=== PATIENT | male | born 1950 | race Caucasian/White ===

== ENCOUNTER 2020-01-29 12:30 | Outpatient (NON) | payer MEDICARE, SELFPAY ==
[2020-01-29 23:24] LABS: SARS-CoV-2 RNA PCR Negative
== END 2020-01-29 12:31 ==
PROVIDERS: PCP Family Medicine; Visit Provider Family Medicine
DX: Z20.828 Contact with and (suspected) exposure to other viral communicable diseases (principal); R09.89 Other specified symptoms and signs involving the circulatory and respiratory systems
CPT/HCPCS: 87635; C9803; U0003

== ENCOUNTER 2020-09-30 00:34 | Day surgery (SDC) | payer MEDICARE, SELFPAY ==
[2020-09-17 13:26] VITALS: BMI 26.4
[2020-09-30 09:31] VITALS: BP 144/71; PULSE 66; RESP 16; TEMP 35.4; O2SAT 100; BMI 25.9
[2020-09-30] MEDS: LACTATED RINGERS 1,000 ML 150 ML IV CONT (09:36)
[2020-09-30 09:56] LABS: Glucose Point of Care 121 mg/dl (65-105)
--- NOTE | 2020-09-30 09:58 | WPDANESEPPF ---
Anes - Initial Pre Proc Eval Procedure: Operation Date: 09/30/20 10:30 Proposed Procedures p Screening Colonoscopy - Ramses Swift MD Date/Time: 09/30/20 09:58 Surgeon: Ramses Swift MD Pre Op Diagnosis: hx of colon polyps Patient Data Age: 69 Gender: M Height: 1.83 m Weight: 86.8 kg Last Vital Signs Temp 35.4 C L 09/30/20 09:31 Pulse 66 09/30/20 09:31 Resp 16 09/30/20 09:31 BP 144/71 H 09/30/20 09:31 Pulse Ox 100 09/30/20 09:31 Allergies Allergy/AdvReac Type Severity Reaction Status Date / Time No Known Allergies Allergy Verified 09/30/20 09:28 Home Medications Medication Instructions Recorded Confirmed Type multivitamin 1 tablet PO DAILY 03/19/19 09/30/20 History atorvastatin 20 mg tablet 20 mg PO DAILY #90 tablet 09/08/19 09/30/20 Rx levothyroxine 75 mcg capsule 75 mcg PO DAILY #90 cap 09/08/19 09/30/20 Rx metformin 1,000 mg tablet 1,000 mg PO BID #180 tablet 09/08/19 09/30/20 Rx blood sugar diagnostic See Rx Instructions .ROUTE 06/14/20 Rx .COMPLEX #100 strip Laboratory Tests 09/30/20 09:53 POC Capillary Glucose 121 mg/dl H mg/dl (65-105) Patient hx anesthesia problems: none Family hx anesthesia problems: none PMFSH Surgical History Surgical History History of appendectomy History of colonoscopy (~12/18/07) Family History Family History Mother Diabetes mellitus Sibling Diabetes mellitus Family history of malignant neoplasm of bone Father Patient's father is Social History Social History Alcohol intake: current Substance use type: does not use Living arrangements: with family Gender identity (if verbalized by the patient): Male Anes - Eval Final PreProcedure Day of Procedure 09/30/20 09:58 Patient weight: overweight Heart: regular rate and rhythm Lungs: clear to auscultation Airway: Mallampati scale class II Neurological: alert and oriented Last oral intake: >/= 8 hours ASA classification: III Emergent: no Anesthetic plan: proceed Anesthesia type and monitoring: general GIVS and standard monitoring Informed Consent: The patient's anesthetic plan and its attendant risks and benefits were discussed with the patient/family/POA. Questions were solicited and answers provided to the satisfaction of the patient/family/POA.
--- NOTE | 2020-09-30 10:10 | PM.HPGS ---
History of Present Illness History of Present Illness Consent: Risks, benefits, and alternatives have been discussed and questions answered. Patient agrees to proceed with procedure. Chief complaint: hx of colon polyps Narrative: Ramesh Navarrete is a 69 year old male Who is here today for colon cancer screening. He has a history of polyps. Review of Systems Review of Systems: All systems reviewed & are unremarkable except as noted in HPI and below PMFSH Surgical History Surgical History History of appendectomy History of colonoscopy (~12/18/07) Family History Family History Mother Diabetes mellitus Sibling Diabetes mellitus Family history of malignant neoplasm of bone Father Patient's father is Social History Social History Alcohol intake: current Substance use type: does not use Living arrangements: with family Gender identity (if verbalized by the patient): Male Meds Home Medications and Allergies Home Medications Medication Instructions Recorded Confirmed Type multivitamin 1 tablet PO DAILY 03/19/19 09/30/20 History atorvastatin 20 mg tablet 20 mg PO DAILY #90 tablet 09/08/19 09/30/20 Rx levothyroxine 75 mcg capsule 75 mcg PO DAILY #90 cap 09/08/19 09/30/20 Rx metformin 1,000 mg tablet 1,000 mg PO BID #180 tablet 09/08/19 09/30/20 Rx blood sugar diagnostic See Rx Instructions .ROUTE 06/14/20 Rx .COMPLEX #100 strip Allergies Allergy/AdvReac Type Severity Reaction Status Date / Time No Known Allergies Allergy Verified 09/30/20 09:28 Vital Signs Vital Signs - 24 hr 09/30/20 09:31 Temperature 35.4 C L Pulse Rate 66 Respiratory Rate 16 Blood Pressure 144/71 H Pulse Oximetry 100 Exam Resp: Auscultation: clear to auscultation bilaterally Cardio: Rate: regular rate Rhythm: regular rhythm GI: GI Palp: Yes Soft to palpation and No Tenderness to palpation present (GI) Assessment and Plan Assessment and plan (1) Colon cancer screening: Code(s): Z12.11 - Encounter for screening for malignant neoplasm of colon Status: Acute Assessment and Plan: Colonoscopy with possible biopsy or polypectomy or cautery or injection of substances.
[2020-09-30] MEDS: SIMETHICONE ORAL SUSPENSION 20 MG/0.3 ML 30 ML BOTTLE 0.6 ML IRRIGATION (10:54)
[2020-09-30 11:06] VITALS: BP 123/62; PULSE 61; RESP 21; O2SAT 100
[2020-09-30 11:16] VITALS: BP 111/65; PULSE 64; RESP 20; O2SAT 100
[2020-09-30 11:26] VITALS: BP 127/73; PULSE 63; RESP 18; O2SAT 100
== END 2020-09-30 11:38 | disposition home or self-care (01) ==
PROVIDERS: PCP Family Medicine; Visit Provider Internal Medicine Gastroenterology
PROC: 0DJD8ZZ Inspection of Lower Intestinal Tract, Via Natural or Artificial Opening Endoscopic (ICD-10-PCS; CPT 45378; principal; 2020-09-30 10:30)
DX: Z12.11 Encounter for screening for malignant neoplasm of colon (principal); D12.5 Benign neoplasm of sigmoid colon; Z79.84 Long term (current) use of oral hypoglycemic drugs
CPT/HCPCS: 45385; 82948; 88305; J2704; J7120

== ENCOUNTER → 2021-02-22 08:45 | Outpatient (CLI) | payer MEDICARE, SELFPAY ==
[2021-02-23 03:59] LABS: SARS-CoV-2 RNA PCR Negative
== END ==
PROVIDERS: PCP Family Medicine; Visit Provider Physician Assistant
DX: R68.83 Chills (without fever) (principal); R53.83 Other fatigue; Z20.822 Contact with and (suspected) exposure to COVID-19
CPT/HCPCS: C9803; U0003; U0005

== ENCOUNTER 2022-07-12 14:45 | Outpatient (CLI) | payer MEDICARE, SELFPAY ==
[2022-07-12 20:52] LABS: Alanine Aminotransferase 24 U/L (6-50); Albumin Level 4.2 g/dL (3.5-5.1); Alkaline Phosphatase 92 U/L (38-126); Anion Gap 5 mmol/L (8-16); Aspartate Amino Transferase 33 U/L (17-59); Bilirubin,Total 0.8 mg/dL (0.2-1.3); Blood Urea Nitrogen 18 mg/dL (9-20); Calcium 8.9 mg/dL (8.4-10.2); Carbon Dioxide 32 mmol/L (22-30); Chloride 100 mmol/L (98-107); Estimated Glomerular Filt Rate > 60; Glucose 214 mg/dL (65-110); Potassium 3.9 mmol/L (3.4-5.0); Sodium 137 mmol/L (137-145)
[2022-07-12 21:28] LABS: Hemoglobin A1C 8.2 % (<5.7)
== END 2022-07-12 14:46 | disposition home or self-care (01) ==
LOC: ANHGOSHLAB 14:46
PROVIDERS: PCP Family Medicine; Visit Provider Family Medicine
DX: E78.2 Mixed hyperlipidemia (principal); E11.9 Type 2 diabetes mellitus without complications; E03.9 Hypothyroidism, unspecified
CPT/HCPCS: 36415; 80053; 83036; 84443

== ENCOUNTER → 2022-08-17 13:42 | Outpatient (CLI) | payer MEDICARE, SELFPAY ==
--- NOTE | ~2022-08-17 | XR_ITS ---
XR knee LT min 4V 08/17/2022 14:11 Indication: Left knee pain Procedure: 4 views left knee Comparison: No prior studies for comparison. Findings: Mild tricompartment osteoarthritis. There is chondrocalcinosis. No fracture, subluxation or dislocation. No significant joint effusion. 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 Reviewed, dictated and finalized at location L. 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
== END ==
PROVIDERS: PCP Family Medicine; Visit Provider Family Medicine
DX: G89.29 Other chronic pain (principal); M25.562 Pain in left knee; M17.12 Unilateral primary osteoarthritis, left knee
CPT/HCPCS: 73564

== ENCOUNTER 2023-01-17 08:13 | Outpatient (CLI) | payer MEDICARE, SELFPAY ==
[2023-01-17 12:03] LABS: Basophils Absolute Auto 0.1 K/mm3 (0.0-0.1); Basophils Percent Auto 0.9 % (0.2-1.2); Eosinophils Absolute Auto 0.2 K/mm3 (0-0.3); Eosinophils Percent Auto 2.5 % (0-4.4); Hematocrit 39.2 % (42.0-52.0); Hemoglobin 12.5 g/dL (14.0-18.0); Immature Granulocyte Absolute 0.02 K/mm3 (0.00-0.031); Immature Granulocyte Percent A 0.3 % (0-0.5); Lymphocytes Absolute Auto 2.01 K/mm3 (0.9-3.2); Lymphocytes Percent Auto 31.8 % (18.3-44.2); Mean Corpuscular HGB Conc 31.9 g/dl (32-36); Mean Corpuscular Hemoglobin 32.6 pg (26-34); Mean Corpuscular Volume 102.1 fl (80-100); Mean Platelet Volume 11.6 fl (7.4-10.4); Monocytes Absolute Auto 0.8 K/mm3 (0.1-0.6); Monocytes Percent Auto 12.5 % (2.6-8.5); Neutrophils Absolute Auto 3.3 K/mm3 (1.3-6.7); Platelet Count Result 236 k/mm3 (150-375); Red Blood Count 3.84 M/mm3 (4.6-6.20); Red Cell Distribution Width 12.8 % (11.5-14.5); White Blood Count 6.3 K/mm3 (4.5-10.0)
[2023-01-17 12:17] LABS: Alanine Aminotransferase 24 U/L (6-50); Albumin Level 4.3 g/dL (3.5-5.1); Alkaline Phosphatase 89 U/L (38-126); Anion Gap 9 mmol/L (8-16); Aspartate Amino Transferase 35 U/L (17-59); Bilirubin,Total 0.9 mg/dL (0.2-1.3); Blood Urea Nitrogen 16 mg/dL (9-20); Calcium 9.4 mg/dL (8.4-10.2); Carbon Dioxide 28 mmol/L (22-30); Chloride 102 mmol/L (98-107); Cholesterol 130 mg/dL (0-200); Estimated Glomerular Filt Rate > 60; Glucose 150 mg/dL (65-110); HDL Direct 40 mg/dL; Potassium 4.3 mmol/L (3.4-5.0); Sodium 139 mmol/L (137-145); Triglycerides 64 mg/dL (<150)
[2023-01-17 12:31] LABS: Hemoglobin A1C 7.9 % (<5.7)
[2023-01-17 12:34] LABS: LDL Cholesterol Direct 72 mg/dL
[2023-01-17 12:40] LABS: Creatinine Urine 43.4 mg/dL
[2023-01-17 12:43] LABS: Microalbumin Urine Random 7.8 mg/L (0-16.7)
[2023-01-17 12:46] LABS: Prostate Specific Antigen 3.9 ng/mL (< OR = 4.0)
[2023-01-17 13:03] LABS: Vitamin D 25 Hydroxy 43.8 ng/mL
[2023-01-17 17:44] LABS: Free T4 Free Thyroxine Reflex 1.63 ng/dL (0.78-2.19)
[2023-01-17 19:27] LABS: Total Triiodothyronine (T3) 1.24 NG/ML (0.97-1.69)
== END 2023-01-17 08:14 | disposition home or self-care (01) ==
PROVIDERS: PCP Family Medicine; Visit Provider Family Medicine
DX: Z00.00 Encounter for general adult medical examination without abnormal findings (principal); E03.9 Hypothyroidism, unspecified; E55.9 Vitamin D deficiency, unspecified; Z12.5 Encounter for screening for malignant neoplasm of prostate; I10 Essential (primary) hypertension; E53.8 Deficiency of other specified B group vitamins; E11.9 Type 2 diabetes mellitus without complications; E78.5 Hyperlipidemia, unspecified
CPT/HCPCS: 36415; 80053; 80061; 82043; 82306; 82607; 83036; 84153; 84439; 84443; 84480; 85025; G0103

== ENCOUNTER → 2023-01-23 12:43 | Outpatient (CLI) | payer MEDICARE, SELFPAY ==
--- NOTE | ~2023-01-23 | XR_ITS ---
EXAM: XR lumbar spine min 4V DATE: 01/23/2023 13:00 HISTORY: no injury lbp going down right leg . COMPARISON: None available. FINDINGS: 5 nonrib-bearing lumbar-type vertebral bodies. Pedicles intact. Minimal 1-2 mm retrolisthe ses at L2-3, L3-4, and L4-5. Mild multilevel disc space narrowing. Moderate multilevel marginal osteo phytosis including bridging osteophytes. Multilevel mild facet arthropathy. Moderate facet arthropath y bilaterally at L5-S1 and on the left at L4-5. Mild lumbar scoliosis. No fracture or dislocation. Mi ld bilateral hip osteoarthritis. IMPRESSION: Multilevel minimal grade 1 retrolistheses, presumably on a degenerative basis. Multilevel moderate degenerative disc disease. Moderate bilateral facet arthropathy at L5-S1. Reviewed, dictated and finalized at location K. [employer] IMPRESSION: Multilevel minimal grade 1 retrolistheses, presumably on a degenera tive basis. Multilevel moderate degenerative disc disease. Moderate bilateral f acet arthropathy at L5-S1.
== END ==
PROVIDERS: PCP Family Medicine; Visit Provider Family Medicine
DX: M54.50 Low back pain, unspecified (principal); M51.36 Other intervertebral disc degeneration, lumbar region; M43.16 Spondylolisthesis, lumbar region
CPT/HCPCS: 72110

== ENCOUNTER 2023-02-27 14:30 | Outpatient (RCR) | payer MEDICARE, SELFPAY ==
--- NOTE | 2023-02-02 15:21 | OPREHPOC ---
Outpatient Therapy Plan of Care This is a Multidisciplinary Plan of Care that may contain components documented by all disciplines (PT, OT, and ST.) PT Problem 1 PT Problem #1 Knowledge Deficit PT Goal 1 Goal Pt to be IND with issued HEP Target Visit 4 PT Problem 2 PT Problem #2 Pain PT Goal 1 Goal Pt to report low back pain no greater than 3/10 in the last week. Target Visit 4 PT Goal 2 Goal Pt to report 75% improvement in overall symptoms, Target Visit 4 PT Problem 3 PT Problem #3 Impaired Range of Motion PT Goal 1 Goal Pt to report equal stretch sensation helio with active lumbar ROM. Target Visit 4
--- NOTE | 2023-02-02 15:22 | PTOPEVAL1 ---
Assessment and note entered by Donald Stallworth, PT, DPT Evaluation Information Assessment Status Evaluation Diagnosis low back pain Onset ~1 month Subjective Information Pt states a couple of weeks ago he was splitting wood and he states if feels like he pulled a muscle the next day. He states he gave it a couple of weeks and the pain has not gotten better yet. He states he was given a muscle relaxer yesterday and this already seems to be helping. He states the pain in an annoyance but his activity is not limited by it. He states transitioning to/from sit /stand is the most painful task. Reported Pain Level Pain Score 1: Self Report Assessment PT Clinical Summary Ramesh presents to therapy today for his initial evaluation with a diagnosis of low back pain. Today he demonstrates decreased lumbar motion in all directions, with good LE strength and ROM. He demonstrates minor paraspinal muscle guarding and has a mild asymmetric pelvic position in supine. Skilled therapy services are indicated to manage pain, improve lumbar mobility, and to return to PLOF. Plan of Care Interventions Electrical Stimulation,Gait Training,Hot Pack/Cold Pack,Manual Therapy,Neuro Re-education,Prosthetic Training,Therapeutic Activities PT Services Indicated Yes Treatment Frequency and 1x/wk for 4 visits Duration These treatments will address the objective and functional deficits as defined above. The patient will be advanced safely and appropriately in order for the patient to progress towards his/her prior level of function. Additional exercises will be introduced and as well as a comprehensive home exercise program upon discharge, if needed, ?to ensure carryover of functional gains achieved in the clinic. This treatment plan has been reviewed and agreement upon by the patient.
--- NOTE | 2023-02-22 08:33 | PCPTNOTE ---
Patient canceled appointment this date due to being out of town.
--- NOTE | 2023-02-27 15:04 | PTOPDC ---
Assessment and note entered by Donald Stallworth, PT, DPT Evaluation Information Assessment Status discharge Diagnosis low back pain Onset ~1 month Subjective Information Pt states his back is doing great, he states he has not had any pain since his first few treatment . He reports no back pain in the last week. He states he continues to have a mild ache in the back of his hip. Reported Pain Level Pain Score 0: Self Report Assessment PT Clinical Summary Ramesh presents to therapy today for his progress report following 4 visits of skilled therapy to treat his diagnosis of low back pain. Today he demonstrates improved lumbar ROM and hip ROM is all directions. He has met all of his therapy goals and no longer requires skilled services. He will be discharged at this time.
== END 2023-02-27 15:34 | disposition home or self-care (01) ==
LOC: ANHGOSHPT 14:30
PROVIDERS: PCP Family Medicine; Visit Provider Family Medicine
DX: M54.50 Low back pain, unspecified (principal)
CPT/HCPCS: 97014; 97110; 97161; 97530; G0283

== ENCOUNTER 2024-01-28 09:45 | Outpatient (CLI) | payer MEDICARE, SELFPAY ==
[2024-01-28 14:12] LABS: Basophils Absolute Auto 0.1 K/mm3 (0.0-0.1); Basophils Percent Auto 0.8 % (0.2-1.2); Eosinophils Absolute Auto 0.2 K/mm3 (0-0.3); Eosinophils Percent Auto 2.9 % (0-4.4); Hemoglobin 13.2 g/dL (14.0-18.0); Immature Granulocyte Absolute 0.02 K/mm3 (0.00-0.031); Immature Granulocyte Percent A 0.3 % (0-0.5); Lymphocytes Absolute Auto 1.67 K/mm3 (0.9-3.2); Lymphocytes Percent Auto 25.8 % (18.3-44.2); Mean Corpuscular HGB Conc 32.2 g/dl (32-36); Mean Corpuscular Hemoglobin 33.6 pg (26-34); Mean Corpuscular Volume 104.3 fl (80-100); Monocytes Absolute Auto 0.6 K/mm3 (0.1-0.6); Monocytes Percent Auto 9.6 % (2.6-8.5); Neutrophils Absolute Auto 3.9 K/mm3 (1.3-6.7); Neutrophils Percent Auto 60.6 % (45.5-73.1); Platelet Count Result 228 k/mm3 (150-375); Red Blood Count 3.93 M/mm3 (4.6-6.20); Red Cell Distribution Width 12.8 % (11.5-14.5); White Blood Count 6.5 K/mm3 (4.5-10.0)
[2024-01-28 14:18] LABS: Creatinine Urine 173.3 mg/dL
[2024-01-28 14:27] LABS: MALB Creatinine Ratio 27.1 mg/g (0-30); Microalbumin Urine Random 46.9 mg/L (0-16.7)
[2024-01-28 14:35] LABS: Hemoglobin A1C 8.2 % (<5.7)
[2024-01-28 15:08] LABS: Alanine Aminotransferase 20 U/L (6-50); Albumin Level 4.2 g/dL (3.5-5.1); Alkaline Phosphatase 89 U/L (38-126); Anion Gap 3 mmol/L (4-12); Aspartate Amino Transferase 32 U/L (17-59); Bilirubin,Total 0.9 mg/dL (0.2-1.3); Blood Urea Nitrogen 17 mg/dL (9-20); Calcium 9.3 mg/dL (8.4-10.2); Carbon Dioxide 29 mmol/L (22-30); Chloride 107 mmol/L (98-107); Cholesterol 144 mg/dL (0-200); Estimated Glomerular Filt Rate > 60; Glucose 197 mg/dL (65-110); HDL Direct 45 mg/dL; Sodium 139 mmol/L (137-145); Triglycerides 65 mg/dL (<150)
[2024-01-28 15:18] LABS: LDL Cholesterol Direct 71 mg/dL
[2024-01-28 15:38] LABS: Prostate Specific Antigen 3.6 ng/mL (< OR = 4.0)
== END 2024-01-28 09:46 | disposition home or self-care (01) ==
LOC: ANHGOSHLAB 09:46
PROVIDERS: PCP Family Medicine; Visit Provider Family Medicine
DX: E03.9 Hypothyroidism, unspecified (principal); E78.2 Mixed hyperlipidemia; D64.9 Anemia, unspecified; E11.9 Type 2 diabetes mellitus without complications; E55.9 Vitamin D deficiency, unspecified; Z12.5 Encounter for screening for malignant neoplasm of prostate
CPT/HCPCS: 36415; 80053; 80061; 82043; 82306; 82607; 83036; 84153; 84443; 85025; G0103

== ENCOUNTER 2024-08-14 08:09 | Outpatient (CLI) | payer MEDICARE, SELFPAY ==
[2024-08-14 19:46] LABS: Basophils Absolute Auto 0.1 K/mm3 (0.0-0.1); Eosinophils Absolute Auto 0.3 K/mm3 (0-0.3); Eosinophils Percent Auto 3.9 % (0-4.4); Hematocrit 39.2 % (42.0-52.0); Hemoglobin 12.8 g/dL (14.0-18.0); Immature Granulocyte Absolute 0.02 K/mm3 (0.00-0.031); Immature Granulocyte Percent A 0.3 % (0-0.5); Lymphocytes Absolute Auto 1.87 K/mm3 (0.9-3.2); Lymphocytes Percent Auto 25.8 % (18.3-44.2); Mean Corpuscular HGB Conc 32.7 g/dl (32-36); Mean Corpuscular Hemoglobin 33.2 pg (26-34); Mean Corpuscular Volume 101.8 fl (80-100); Mean Platelet Volume 11.7 fl (7.4-10.4); Monocytes Absolute Auto 0.7 K/mm3 (0.1-0.6); Monocytes Percent Auto 10.1 % (2.6-8.5); Neutrophils Absolute Auto 4.3 K/mm3 (1.3-6.7); Neutrophils Percent Auto 58.9 % (45.5-73.1); Platelet Count Result 240 k/mm3 (150-375); Red Blood Count 3.85 M/mm3 (4.6-6.20); Red Cell Distribution Width 12.5 % (11.5-14.5); White Blood Count 7.2 K/mm3 (4.5-10.0)
[2024-08-14 20:15] LABS: Alanine Aminotransferase 30 U/L (6-50); Albumin Level 3.9 g/dL (3.5-5.1); Alkaline Phosphatase 96 U/L (38-126); Anion Gap 6 mmol/L (4-12); Aspartate Amino Transferase 31 U/L (17-59); Bilirubin,Total 0.4 mg/dL (0.2-1.3); Blood Urea Nitrogen 15 mg/dL (9-20); Calcium 9.5 mg/dL (8.4-10.2); Carbon Dioxide 28 mmol/L (22-30); Chloride 107 mmol/L (98-107); Cholesterol 129 mg/dL (0-200); Estimated Glomerular Filt Rate > 60; Glucose 152 mg/dL (65-110); HDL Direct 39 mg/dL; Sodium 141 mmol/L (137-145); Total Protein 6.8 g/dL (6.3-8.2); Triglycerides 61 mg/dL (<150)
[2024-08-14 20:19] LABS: Microalbumin Urine Random 17.3 mg/L (0-16.7)
[2024-08-14 20:22] LABS: Creatinine Urine 175.1 mg/dL; MALB Creatinine Ratio 9.9 mg/g (0-30)
[2024-08-14 20:26] LABS: LDL Cholesterol Direct 66 mg/dL
[2024-08-14 21:01] LABS: Free T4 Free Thyroxine 1.05 ng/dL (0.78-2.19); Vitamin D 25 Hydroxy 41.7 ng/mL
[2024-08-14 21:03] LABS: Hemoglobin A1C 7.6 % (<5.7)
== END 2024-08-14 08:10 | disposition home or self-care (01) ==
PROVIDERS: PCP Family Medicine; Visit Provider Nurse Practitioner Family
DX: E78.5 Hyperlipidemia, unspecified (principal); E11.9 Type 2 diabetes mellitus without complications; I10 Essential (primary) hypertension; E03.9 Hypothyroidism, unspecified; E55.9 Vitamin D deficiency, unspecified
CPT/HCPCS: 36415; 80053; 80061; 82043; 82306; 82607; 83036; 84439; 84443; 85025